=== PATIENT | female | born 1985 | race Caucasian/White ===

== ENCOUNTER → 2021-03-21 | Outpatient (CLI) | payer OTHER ==
[~2021-03-21] MED LIST: ACET-789 PO; ASPI-586 PO; BCP'S; CETI10TA49 PO; FLUC100T PO; HYDR-707 PO; IBUP-1773 PO; LORA-877 PO; NORG1TAB16 PO; NSTR15C TP; NYST15CR TP; PARO20TA5 PO; PNV PO
--- NOTE | 2021-03-21 16:55 | Diagnostic Imaging Report ---
PROCEDURE: Pelvic complete, transabdominal and transvaginal sonogram. Limited pelvic doppler. TECHNIQUE: Multiple real-time grayscale images were obtained of the pelvis in various projections transabdominally and transvaginally. Limited pelvic duplex images were obtained. HISTORY: Abnormal uterine bleeding. COMPARISON: None available. FINDINGS: Uterus: The uterus is anteverted and measures 7.6 x 4.5 x 5.0 cm. The myometrium is homogeneous without fibroids. Endometrium: The endometrium is normal in thickness and measures 0.4 cm. There is no fluid within the endometrial cavity. Adnexa: Both ovaries have a normal physiologic appearance. The right ovary measures 3.1 x 1.4 x 2.3 cm and the left ovary measures 3.2 x 1.2 x 2.2 cm. Duplex images reveal normal vascular flow to both ovaries. Other: There is no free fluid within the pelvis. IMPRESSION: 1. Unremarkable pelvic ultrasound. Dictated by: Dictated on workstation # [id number]
== END ==
LOC: RAD 15:15
PROVIDERS: ATTEND Obstetrics & Gynecology
DX: N93.9 Abnormal uterine and vaginal bleeding, unspecified (principal)
CPT/HCPCS: 76830; 76856

== ENCOUNTER 2021-03-26 11:05 | Outpatient (CLI) | payer OTHER ==
[~2021-03-26] VITALS: Ht 160 cm; Wt 72.7 kg
[~2021-03-26 11:05] MED LIST changes: -CETI10TA49 PO; -NORG1TAB16 PO; -PARO20TA5 PO
[2021-03-26] MEDS ORDERED: NORG1TAB16 PO (11:52)
[2021-03-26] MEDS ORDERED: PARO20TA5 PO (11:52)
[2021-03-26] MEDS ORDERED: CETI10TA49 PO (11:52)
[2021-03-27] MEDS ORDERED: ONDN4T PO (10:27)
[2021-03-27] MEDS ORDERED: ACET-2267 PO (10:27)
[2021-03-27] MEDS ORDERED: OXC5T PO (10:27)
[2021-03-27] MEDS ORDERED: IBUP-1773 PO (10:27)
== END 2021-03-26 12:12 | disposition home or self-care (01) ==
LOC: PREOP 11:05
PROVIDERS: ATTEND Obstetrics & Gynecology
DX: Z01.818 Encounter for other preprocedural examination (principal)

== ENCOUNTER 2021-03-27 08:22 | Day surgery (SDC) | payer OTHER ==
[2021-03-27] VITALS (10 sets, daily range): BP systolic 95–131; BP diastolic 62–100
[~2021-03-27] VITALS: Ht 160 cm; Wt 72.7 kg
[~2021-03-27 08:22] MED LIST changes: +CETI10TA49 PO; +NORG1TAB16 PO; +PARO20TA5 PO
[2021-03-27] MEDS ORDERED: ceFAZolin 2 GM IV Premixed 50 ML IV ONE (08:30)
[2021-03-27] MEDS ORDERED: metroNIDAZOLE 500MG/100ML IVPB 100 ML IV ONE (08:30)
[2021-03-27] MEDS ORDERED: ONDANSETRON 4 MG/2 ML (SDV) Z0FRAN ONE (09:15)
[2021-03-27] MEDS ORDERED: LIDOCAINE PF 2% 5 ML (XYLOCAINE) VIAL ONE (09:15)
[2021-03-27] MEDS ORDERED: proPOfol 200 MG/20 ML (DIPRIVAN) VIAL IV ONE (09:15)
[2021-03-27] MEDS ORDERED: LACTATED RINGERS 1,000 ML IV PRN (09:15)
[2021-03-27] MEDS ORDERED: MIDAZOLAM 2 MG/2 ML (VERSED) VIAL ONE (09:15)
[2021-03-27] MEDS ORDERED: fentaNYL INJ 100 MCG/2 ML AMP ONE (09:15)
--- NOTE | 2021-03-27 09:39 | Progress Note-Pre Operative ---
Pre-Operative Progress Note H&P Reviewed The H&P was reviewed, patient examined and no changes noted. Date Seen by Provider: Mar 27, 2021 Time Seen by Provider: 09:40 Date H&P Reviewed: Mar 27, 2021 Time H&P Reviewed: 09:30 Pre-Operative Diagnosis: abnormal uterine bleeding, menometrorrhagia CESARIO SPEAR DO Mar 27, 2021 09:39
--- NOTE | 2021-03-27 10:24 | Operative Report ---
Operative Report Date of Procedure/Surgery Mar 27, 2021 Surgeon (s) CESARIO SPEAR DO [employer] Guides (s): NA Post-Operative Diagnosis same Procedure Performed Chela endometrial ablation curettage Description of Procedure Anesthesia Type: General Estimated blood loss (mL): minimal Specimen(s) collected/removed endometrial curettings Description of the Procedure with informed consent the patient was taken to the operating room where general anesthesia was found the be adequate. She was then prepped and draped in the usual sterile fashion in the dorsolithotomy position. The bladder was then drained of clear, yellow urine. A speculum was placed in the vagina and the cervix was grasped with a tenaculum. The uterus was then sounded to 6.5 cm. I dilated the cervix and then a gentle curette was done. I then proceeded to do the Chela ablation under standard procedures. The ablation was done for 120 seconds and once this was completed, the device was removed. The tenaculum was removed from the cervix. There was an area of possible endometriosis so this area was cauterized and the tenaculum sites were cauterized. The patient was now awakened and taken to recovery in a stable condition. Findings of the Procedure small spots on the cervix that were bluish owen, possibly endometriosis small amount of endometrial curettings Allergies and Home Medications Allergies Coded Allergies: Sulfa (Sulfonamide Antibiotics) (Unverified Allergy, Unknown, 11/22/10) Home Medications Acetaminophen 500 Mg Tablet, 1,000 MG PO Q8H Prescribed by: CESARIO SPEAR on 03/27/21 1027 Cetirizine HCl 10 Mg Tablet, 10 MG PO DAILY, (Reported) Ibuprofen 600 Mg Tablet, 600 MG PO Q6H Prescribed by: CESARIO SPEAR on 03/27/21 1027 Ondansetron HCl 4 Mg Tab, 4 MG PO Q6H Prescribed by: CESARIO SPEAR on 03/27/21 1027 Oxycodone Hcl 5 Mg Tab, 5 MG PO Q4H Prescribed by: CESARIO SPEAR on 03/27/21 1027 Paroxetine HCl 20 Mg Tablet, 20 MG PO DAILY, (Reported) Patient Home Medication List Home Medication List Reviewed: Yes CESARIO SPEAR DO Mar 27, 2021 10:24
[2021-03-27] MEDS ORDERED: SEVOFLURANE (ULTANE) 15 ML INHAL SOLN ONE (10:25)
[2021-03-27] MEDS ORDERED: KETOROLAC 30 MG/ML VIAL ONE (10:25)
[2021-03-27] MEDS ORDERED: ONDN4T PO (10:27)
[2021-03-27] MEDS ORDERED: IBUP-1773 PO (10:27)
[2021-03-27] MEDS ORDERED: OXC5T PO (10:27)
[2021-03-27] MEDS ORDERED: ACET-2267 PO (10:27)
--- NOTE | 2021-03-27 10:30 | Discharge Inst-Women's Service ---
Discharge Inst-Women's Serv Depart Medication/Instructions New, Converted or Re-Newed RX: Transmitted to Pharmacy Instructions expect some light bleeding/spotting for up to two weeks also increase in discharge in 10-14 days Final Diagnosis abnormal uterine bleeding menometrorrhagia Problems Reviewed?: Yes Consults/Follow Up Additional Follow Up: Yes (2-4 weeks ) Activity Activity: Activity as Tolerated Driving Instructions: No Driving for 24 Hours NO SMOKING: NO SMOKING Nothing Inside Vagina: No Douching, No [place], No Tampons Diet Discharge Diet: No Restrictions Symptoms to Report to : Swelling Increased, Bleeding Excessive, Pain Increased, Fever Over 101 Degrees F, Vaginal Bleeding Increase, Cramps in Feet or Legs, Vaginal Discharge Foul For Any Problems or Questions: Contact Your Physician CESARIO SPEAR DO Mar 27, 2021 10:30
--- NOTE | 2021-03-27 10:39 | Anesthesia-General Post-Op ---
General Patient Condition Mental Status/LOC: Same as Preop Cardiovascular: Satisfactory Nausea/Vomiting: Absent Respiratory: Satisfactory Pain: Controlled Complications: Absent Post Op Complications Complications None Follow Up Care/Instructions Patient Instructions None needed. Anesthesia/Patient Condition Patient Condition Patient is doing well, no complaints, stable vital signs, no apparent adverse anesthesia problems. No complications reported per nursing. ISABEL UP CRNA Mar 27, 2021 10:39
[2021-03-27] MEDS ORDERED: morphine INJ 10 MG/ML 1ML (SYR OR VIAL) IVP ONE (10:45)
[2021-03-27] MEDS ORDERED: ONDANSETRON 4 MG/2 ML (SDV) Z0FRAN IVP PRN (10:45)
[2021-03-27] MEDS ORDERED: fentaNYL INJ 100 MCG/2 ML AMP IVP ONE (10:45)
[2021-03-27] MEDS ORDERED: ACETAMINOPHEN 500 MG TAB (TYLENOL) PO PRN (11:45)
[2021-03-27] MEDS ORDERED: ACETAMINOPHEN 500 MG TAB (TYLENOL) ONE (11:47)
== END 2021-03-27 12:29 | disposition home or self-care (01) ==
LOC: SDC 08:22
PROVIDERS: ATTEND Obstetrics & Gynecology
DX: N85.8 Other specified noninflammatory disorders of uterus (principal); N93.8 Other specified abnormal uterine and vaginal bleeding; Z79.899 Other long term (current) drug therapy; Z79.1 Long term (current) use of non-steroidal anti-inflammatories (NSAID); Z79.891 Long term (current) use of opiate analgesic
CPT/HCPCS: 84703; 87081; 88305

== ENCOUNTER 2023-06-29 17:32 | Emergency (ER) | payer OTHER ==
[~2023-06-29] VITALS: Ht 160 cm; Wt 83.0 kg
[~2023-06-29 17:32] MED LIST changes: +ACET-2267 PO; -NSTR15C TP; -NYST15CR TP; +NYST15CR35 TP; +NYST15CR36 TP; +ONDN4T PO; +OXC5T PO
--- NOTE | 2023-06-29 18:07 | ED Lower Extremity ---
General Chief Complaint: Lower Extremity Stated Complaint: RIGHT ANKLE INJ Nursing Triage Note: PT ARRIVED BY [facility] WITH CC OF LEFT ANKLE INJURY AFTER SHE FELL OFF A 3 STEP LADDER AT 1630. PT RECIEVED 100MCG OF FENTANYL IM FROM EMS UPON ARRIVAL. Source: patient Exam Limitations: no limitations History of Present Illness Date Seen by Provider: Jun 29, 2023 Time Seen by Provider: 17:43 Initial Comments 37-year-old female presents to the ER via EMS after she fell off of a ladder. She thinks she was approximately 3 or 4 steps up. She presents with left ankle pain and swelling as well as left foot pain. Allergies and Home Medications Allergies Coded Allergies: Sulfa (Sulfonamide Antibiotics) (Unverified Allergy, Unknown, 11/22/10) Patient Home Medication List Home Medication List Reviewed: Yes Acetaminophen (Tylenol Extra Strength) 500 Mg Tablet, 1,000 MG PO Q8H Prescribed by: CESARIO SPEAR on 03/27/21 1027 Cetirizine HCl (Zyrtec) 10 Mg Tablet, 10 MG PO DAILY, (Reported) Entered as Reported by: DEMOND GOODMAN on 03/26/21 1152 Hydrocodone/Acetaminophen (Hydrocodone-Acetamin 5-325 mg) 5 Mg-325 Mg Tablet, 1 TAB PO Q4H PRN for PAIN-MODERATE (5-7) Prescribed by: Neisha Newton on 06/29/23 1908 Ibuprofen (Ibuprofen) 600 Mg Tablet, 600 MG PO Q6H Prescribed by: CESARIO SPEAR on 03/27/21 1027 Ondansetron HCl (Zofran) 4 Mg Tab, 4 MG PO Q6H Prescribed by: CESARIO SPEAR on 03/27/21 1027 Oxycodone Hcl (Oxyir Tablet) 5 Mg Tab, 5 MG PO Q4H Prescribed by: CESARIO SPEAR on 03/27/21 1027 Paroxetine HCl (Paroxetine HCl) 20 Mg Tablet, 20 MG PO DAILY, (Reported) Entered as Reported by: DEMOND GOODMAN on 03/26/21 1152 Review of Systems Constitutional: see HPI Past Knkwdfh-Vvtqzl-Qlqqtf Hx Patient Social History Use of E-Cig and/or Vaping dev: Yes E-Cig or Vaping type used: Marijuana Substance use?: Yes Substance type: Marijuana Alcohol Use?: Yes Alcohol Frequency: Several times a month Immunizations Up To Date Tetanus Booster (TDap): More than 5yrs First/Initial COVID19 Vaccinat: YES Second COVID19 Vaccination Kevin: YES Third COVID19 Vaccination Date: YES Seasonal Allergies Seasonal Allergies: Yes Past Medical History Surgery/Hospitalization HX: TONSILECTOMY, UTERINE ABLASION Surgeries: Yes (Scuddy Teeth) Tonsillectomy Respiratory: No Cardiac: No Neurological: No Reproductive Disorders: No Female Reproductive Disorders: Denies Sexually Transmitted Disease: No HIV/AIDS: No Genitourinary: No Gastrointestinal: No Musculoskeletal: No Endocrine: No HEENT: No Loss of Vision: Denies Hearing Impairment: Denies Cancer: No Psychosocial: No Integumentary: No Blood Disorders: No Adverse Reaction/Blood Tranf: No Family Medical History Cardiovascular disease Grandparents (Maternal Grandmother-Stints Paternal Grandfather- of heart attack) Cataracts Grandparents (Maternal Grandfather) Diabetes mellitus Grandparents (Paternal Grandfather) Fibrocystic disease of breast Grandparents (Paternal Grandmother) Glaucoma Grandparents (Maternal Grandfather) Headache disorder Grandparents (Maternal Grandfather-Cluster Headaches) Hypercholesterolemia 19 MOTHER Grandparents (Maternal Grandmother) Myocardial infarction Grandparents (Paternal Grandfather x2) Psychosocial problem 19 MOTHER (Anxiety) Grandparents (Maternal Grandmother-Anxiety) Severe allergy Grandparents (Maternal Grandmother- Anaphylaxis to Sulfa drugs) No Pertinent Family Hx Physical Exam Vital Signs Vital Signs - First Documented 06/29/23 17:36 Pulse 107 B/P (MAP) 138/87 (104) Pulse Ox 99 O2 Delivery Room Air Capillary Refill : Height, Weight, BMI Height: 5'3" Weight: 145lbs. 8.0oz. 65.756250ju; 32.00 BMI Method:Stated General Appearance: WD/WN, no apparent distress Neck: supple, normal inspection Cardiovascular: regular rate, rhythm Respiratory: lungs clear, normal breath sounds, no respiratory distress, no accessory muscle use Ankles: left ankle limited range of motion, left ankle pain, left ankle soft tissue tenderness, left ankle swelling Feet: left foot pain, left foot other (Pulses intact, sensation intact distally, cap refill less than 2 seconds) Neurologic/Psychiatric: alert, normal mood/affect Skin: normal color, warm/dry Progress/Results/Core Measures Results/Orders Lab Results Laboratory Tests Test 06/29/23 17:42 Range/Units Glucometer 80 70-110 MG/DL My Orders Orders - NEISHA CHAMORRO APRN Foot, Left, 3 Views (06/29/23 17:48) Ankle, Left, 3 Views (06/29/23 17:48) Fentanyl Injection (Fentanyl Injection (06/29/23 18:30) Ankle, Left, 3 Views (06/29/23 18:39) Hydrocodone/Apap 10/325 Tablet (Hydrocod (06/29/23 19:00) Fentanyl Injection (Fentanyl Injection (06/29/23 19:00) Ketorolac Injection (Ketorolac Injection (06/29/23 19:00) Rx-Hydrocodone/Apap 5-325 Mg (Rx-Vicodin (06/29/23 19:15) Medications Given in ED Current Medications Medications Dose Ordered Sig/Pillo Route Start Time Stop Time Status Last Admin Dose Admin Acetaminophen/ Hydrocodone Bitart 1 ea ONCE ONCE PO 06/29/23 19:00 06/29/23 19:01 DC 06/29/23 19:01 1 EA Acetaminophen/ Hydrocodone Bitart 1 ea Q4H PRN PO 06/29/23 19:15 06/29/23 19:28 DC 06/29/23 19:15 1 EA Fentanyl Citrate 50 mcg ONCE ONCE IVP 06/29/23 19:00 06/29/23 19:01 DC 06/29/23 19:02 50 MCG Fentanyl Citrate 100 mcg ONCE ONCE IVP 06/29/23 18:30 06/29/23 18:31 DC 06/29/23 18:26 100 MCG Ketorolac Tromethamine 15 mg ONCE ONCE IVP 06/29/23 19:00 06/29/23 19:01 DC 06/29/23 19:02 15 MG Vital Signs/I&O 06/29/23 06/29/23 17:36 19:25 Pulse 107 99 B/P (MAP) 138/87 (104) 123/91 Pulse Ox 99 95 O2 Delivery Room Air Room Air Blood Pressure Mean: 104 Progress Progress Note : Progress Note Patient seen and evaluated, resting comfortably in bed, no acute distress. Based on exam and symptoms, x-ray of left ankle and left foot ordered. Patient was given 100 mcg of fentanyl by EMS. 1838 x-rays reviewed by me. It shows a slightly displaced left distal fibula fracture. Also shows a comminuted and displaced medial malleolus fracture of the left ankle. There is a possible posterior malleolar fracture as well. No acute fracture noted to foot x-ray on my review. Second dose of 100 mcg of fentanyl given prior to splint placement. Posterior leg splint with stirrup splint placed. Patient tolerated procedure well. Sensation intact in toes, cap refill less than 2 seconds. Postreduction film ordered. 1901 postreduction film reviewed by me. Improvement noted after splint placement. More pain medication given. Will discharge with prescription for [place] and take-home pack for tonight. Patient is stable for discharge. Instructed to follow-up with orthopedics. Will give prescription for crutches. Discharge instructions and return precautions provided. Diagnostic Imaging Diagonstic Imaging: Xray Plain Films/CT/US/NM/MRI: ankle Comments [facility], [place] NAME: RADHABROOK Carlos [facility] REC#: [id number] PT STATUS: DEP ER : 1985 PHYSICIAN: NEISHA CHAMORRO APRN ADMIT DATE: 06/29/23/ER Signed Date of Exam:06/29/23 ANKLE, LEFT, 3 VIEWS INDICATION: 37-year-old female injured in fall presents with left ankle pain. COMPARISON: None. FINDINGS: Three views of the left ankle show a slightly displaced left distal fibular fracture. There is a comminuted medial malleolar fracture as well as suspected posterior malleolar fracture. The ankle mortise is slightly disrupted. Overlying soft tissue swelling is seen. IMPRESSION: 1. Slightly displaced left distal fibular fracture. 2. Comminuted and displaced medial malleolar fracture of the left ankle. A posterior malleolar fracture may also be present. The ankle mortise appears slightly disrupted. There is overlying soft tissue swelling. Dictated by: Dictated on workstation # [id number] Dict: 06/29/231837 Trans: 06/29/231928 [facility] [id number] Interpreted by: KIANA ELLIS MD Electronically signed by: KIANA ELLIS MD 06/29/231928 Diagonstic Imaging: Xray Plain Films/CT/US/NM/MRI: other (foot) Comments [facility] [place] NAME: BROOK GARCIA [facility] REC#: [id number] PT STATUS: [facility] ER : 1985 PHYSICIAN: NEISHA CHAMORRO APRN ADMIT DATE: 06/29/23/ER Signed Date of Exam:06/29/23 FOOT, LEFT, 3 VIEWS INDICATION: 37-year-old female injured in fall from a ladder presents with left ankle and left foot pain. COMPARISON: Left ankle 06/29/2023. FINDINGS: Three views of the left foot show no evidence of new or healing fracture, bony destruction or remodeling. As noted on the ankle films, there is a complex left ankle fracture including the distal fibular fracture as well as a displaced and comminuted medial malleolar fracture and a possible posterior malleolar fracture with disruption of the ankle mortise. IMPRESSION: 1. No fracture or subluxation seen in the left foot. 2. Complex left ankle fracture with disruption of the ankle mortise. Dictated by: Dictated on workstation # [id number] Dict: 06/29/231840 Trans: 06/29/231928 [facility] [id number] Interpreted by: KIANA ELLIS MD Electronically signed by: KIANA ELLIS MD 06/29/231928 Diagonstic Imaging: Xray Plain Films/CT/US/NM/MRI: ankle Comments [facility] [place] NAME: BROOK GARCIA Carlos [facility] REC#: [id number] PT STATUS: [facility] ER : 1985 PHYSICIAN: NEISHA CHAMORRO APRN ADMIT DATE: 06/29/23/ER Signed Date of Exam:06/29/23 ANKLE, LEFT, 3 VIEWS INDICATION: 37-year-old female with left ankle fracture post casting. COMPARISON: 06/29/2022. FINDINGS: Since the prior exam, there has been interval placement of a cast over the left distal leg and foot. This stabilizes the previously demonstrated nondisplaced left distal fibular fracture as well as comminuted medial malleolar fracture. Ankle mortise is slightly improved. IMPRESSION: There is now casting overlying the fractures involving the medial malleolus and distal fibula of the left ankle. The ankle mortise has improved. Dictated by: Dictated on workstation # [id number] Dict: 06/29/231899 Trans: 06/29/231928 E [id number] Interpreted by: KIANA ELLIS MD Electronically signed by: KIANA ELLIS MD 06/29/231928 Departure Impression Primary Impression: Fibula fracture Additional Impression: Medial malleolar fracture Disposition: HOME, SELF-CARE Condition: Stable Departure-Patient Inst. Decision time for Depature: 19:02 Referrals: SAIMA MOONEY MD (PCP/Family) Primary Care Physician JAYJAY ANGEL MD, MICHAEL P MD Patient Instructions: Ankle Fracture (DC) Add. Discharge Instructions: Keep the splint in place at all times. Do not get it wet. Cover it with plastic like plastic wrap or a trash bag when showering to prevent it from getting wet. Do not put any weight on your foot. Use the crutches to keep weight off your foot. You will need to take the paper prescription to the [facility] to sisal picker the crutches. Below is the address and phone number. Follow-up with orthopedics. I have provided Dr. Angel's and Dr. Ayala's phone number. Take [place] as needed for pain. It may make you sleepy. You may also take 800 mg of ibuprofen every 8 hours with food as needed for pain. Return for severe pain, numbness or tingling in your foot, or any other new, concerning, or worsening symptoms. [facility] in [address], [place], [place] [id number] All discharge instructions reviewed with patient and/or family. Voiced understanding. Scripts Hydrocodone/Acetaminophen (Hydrocodone-Acetamin 5-325 mg) 5 Mg-325 Mg Tablet 1 TAB PO Q4H PRN for PAIN-MODERATE (5-7), #15 TAB 0 Refills Prov: NEISHA CHAMORRO SENIOR APPLICATIONS ENGINEER 06/29/23 NEISHA CHAMORRO APRN Jun 29, 2023 18:07
[2023-06-29] MEDS ORDERED: fentaNYL INJECTION 100 MCG/2 ML VIAL IVP ONE ×2 (18:30→19:00)
--- NOTE | 2023-06-29 18:44 | Diagnostic Imaging Report ---
INDICATION: 37-year-old female injured in fall presents with left ankle pain. COMPARISON: None. FINDINGS: Three views of the left ankle show a slightly displaced left distal fibular fracture. There is a comminuted medial malleolar fracture as well as suspected posterior malleolar fracture. The ankle mortise is slightly disrupted. Overlying soft tissue swelling is seen. IMPRESSION: 1. Slightly displaced left distal fibular fracture. 2. Comminuted and displaced medial malleolar fracture of the left ankle. A posterior malleolar fracture may also be present. The ankle mortise appears slightly disrupted. There is overlying soft tissue swelling. Dictated by: Dictated on workstation # [id number]
--- NOTE | 2023-06-29 18:48 | Diagnostic Imaging Report ---
INDICATION: 37-year-old female injured in fall from a ladder presents with left ankle and left foot pain. COMPARISON: Left ankle 06/29/2023. FINDINGS: Three views of the left foot show no evidence of new or healing fracture, bony destruction or remodeling. As noted on the ankle films, there is a complex left ankle fracture including the distal fibular fracture as well as a displaced and comminuted medial malleolar fracture and a possible posterior malleolar fracture with disruption of the ankle mortise. IMPRESSION: 1. No fracture or subluxation seen in the left foot. 2. Complex left ankle fracture with disruption of the ankle mortise. Dictated by: Dictated on workstation # [id number]
[2023-06-29] MEDS ORDERED: HYDROcodone/ACETAMINOPHEN 10/325 TABLET PO ONE (19:00)
[2023-06-29] MEDS ORDERED: KETOROLAC INJ 15 MG/ML VIAL IVP ONE (19:00)
[2023-06-29] MEDS ORDERED: ACHD5005 PO (19:07)
--- NOTE | 2023-06-29 19:13 | Diagnostic Imaging Report ---
INDICATION: 37-year-old female with left ankle fracture post casting. COMPARISON: 06/29/2022. FINDINGS: Since the prior exam, there has been interval placement of a cast over the left distal leg and foot. This stabilizes the previously demonstrated nondisplaced left distal fibular fracture as well as comminuted medial malleolar fracture. Ankle mortise is slightly improved. IMPRESSION: There is now casting overlying the fractures involving the medial malleolus and distal fibula of the left ankle. The ankle mortise has improved. Dictated by: Dictated on workstation # [id number]
[2023-06-29 19:25] VITALS: BP 123/91
[2023-07-01] MEDS ORDERED: NORG1TAB79 PO (12:51)
== END 2023-06-29 19:25 | disposition home or self-care (01) ==
LOC: EDUNIT# 17:32 → ER 17:33
DX: S82.52XA Displaced fracture of medial malleolus of left tibia, initial encounter for closed fracture (principal); W11.XXXA Fall on and from ladder, initial encounter
CPT/HCPCS: 73610; 73630; 82947; 96374; 96375; 96376

== ENCOUNTER → 2023-07-01 | Outpatient (CLI) | payer OTHER ==
[~2023-07-01] MED LIST changes: +ACHD5005 PO; +ASPI-1238 PO; +HYDR-3817 PO; +NORG1TAB79 PO
== END ==
LOC: ORTHO 08:35
PROVIDERS: ATTEND Orthopaedic Surgery
DX: S82.842D Displaced bimalleolar fracture of left lower leg, subsequent encounter for closed fracture with routine healing (principal); S93.439D Sprain of tibiofibular ligament of unspecified ankle, subsequent encounter; X58.XXXD Exposure to other specified factors, subsequent encounter

== ENCOUNTER → 2023-07-01 | Outpatient (CLI) | payer OTHER ==
[~2023-07-01] VITALS: Ht 160 cm; Wt 84.6 kg
== END | disposition home or self-care (01) ==
LOC: PREOP 11:08
PROVIDERS: ATTEND Orthopaedic Surgery
DX: Z01.818 Encounter for other preprocedural examination (principal)

== ENCOUNTER 2023-07-02 09:43 | Day surgery (SDC) | payer OTHER ==
[~2023-07-02] VITALS: Ht 160 cm; Wt 84.6 kg
[2023-07-02] VITALS (11 sets, daily range): BP systolic 107–141; BP diastolic 64–108
[~2023-07-02 09:43] MED LIST changes: -ASPI-1238 PO; -HYDR-3817 PO
[2023-07-02] MEDS ORDERED: MIDAZOLAM INJ 2 MG/2 ML VIAL ONE (10:15)
[2023-07-02] MEDS ORDERED: fentaNYL INJECTION 100 MCG/2 ML VIAL ONE (10:15)
[2023-07-02] MEDS ORDERED: ONDANSETRON INJECTION 4 MG/2 ML (SDV) ONE (10:16)
[2023-07-02] MEDS ORDERED: LIDOCAINE PF 2% 5 ML VIAL ONE (10:16)
[2023-07-02] MEDS ORDERED: dexAMETHasone INJ 10 MG/ML 1 ML VIAL ONE (10:16)
[2023-07-02] MEDS ORDERED: proPOfol INJECTION 200 MG/20 ML VIAL IV ONE (10:16)
[2023-07-02] MEDS ORDERED: BUPIVACAINE 0.25% 30 ML VIAL ONE (10:20)
[2023-07-02] MEDS ORDERED: LACTATED RINGERS 1,000 ML 1,000 ML IV PRN (10:45)
[2023-07-02] MEDS ORDERED: ceFAZolin INJECTION 2,000 MG ONE (10:49)
[2023-07-02] MEDS ORDERED: NS (IVPB) 50 ML 50 ML ONE (10:49)
--- NOTE | 2023-07-02 10:52 | Progress Note-Pre Operative ---
Pre-Operative Progress Note Date of Available H&P: Jul 01, 2023 Date H&P Reviewed: Jul 02, 2023 Time H&P Reviewed: 10:45 History & Physical: H&P Reviewed, Patient Examed, No changes noted Pre-Operative Diagnosis: L Bimalleolar Ankle Fracture/Syndesmotic Injury JAYJAY BULLARD MD Jul 02, 2023 10:52
[2023-07-02] MEDS ORDERED: ceFAZolin INJECTION 2,000 MG in NS (IVPB) 50 ML 50 ML IV ONE (12:00)
[2023-07-02] MEDS ORDERED: PROMETHAZINE INJ 25 MG/ML VIAL IVP ONE (12:45)
[2023-07-02] MEDS ORDERED: MEPERIDINE INJ 50 MG/ML VIAL IVP ONE (12:45)
[2023-07-02] MEDS ORDERED: HYDROmorphone INJECTION 2 MG/ML VIAL IV ONE (12:45)
[2023-07-02] MEDS ORDERED: ONDANSETRON INJECTION 4 MG/2 ML (SDV) IVP PRN (12:45)
[2023-07-02] MEDS ORDERED: morphine INJ 10 MG/ML 1ML (SYR OR VIAL) IVP ONE (12:45)
--- NOTE | 2023-07-02 12:45 | Anesthesia-General Post-Op ---
General Patient Condition Mental Status/LOC: Same as Preop Cardiovascular: Satisfactory Nausea/Vomiting: Absent Respiratory: Satisfactory Pain: Controlled Complications: Absent Post Op Complications Complications None Follow Up Care/Instructions Patient Instructions None needed. Anesthesia/Patient Condition Patient Condition Patient is doing well, no complaints, stable vital signs, no apparent adverse anesthesia problems. No complications reported per nursing. GINETTE BAHENA CRNA Jul 02, 2023 12:45
--- NOTE | 2023-07-02 12:51 | Operative Report - Ortho ---
Operative Report Surgeon (s)/Furnace Liner (s) Surgeon JAYJAY BULLARD MD Furnace Liner n/a Pre-Operative Diagnosis Left Bimalleolar Ankle Fracture/Left Syndesmotic Injury Post-Operative Diagnosis same Operative Report Date of Procedure: Jul 02, 2023 Name of Procedure Performed: Open Reduction and Internal Fixation of Left Bimalleolar Ankle Fracture Open Reduction and Internal Fixation of Left Ankle Syndesmosis Description & Findings After obtaining informed consent and marking the patient, patient did receive intravenous antibiotics. Taken to the operating room and general anesthesia was induced. Surgical timeout was taken. The left lower extremity was prepped and draped in the usual sterile fashion. Attention was initially turned to the fibula fracture, incision was made centered over the fracture. Dissection was carried down to the fracture and a periosteal elevator was used to expose the fibula proximally and distally. The fracture was provisionally reduced using clamps. A fibular plate was selected and placed. A nonlocking screw was placed in the diaphysis of the fibula proximally and then a nonlocking screw was then placed distally. C-arm demonstrated good position of the plate with near an atomic reduction of the fracture. Locking screws were used to fill the proximal holes of the plate. One additional locking screw was placed in the distal portion of the plate. Most distal hole was left open for syndesmotic fixation. C-arm demonstrated appropriate position of the plate and screws and maintained reduction of the fracture. Attention was turned to the medial side. Fracture had near anatomic reduction. 2 K-wires for 4.0 cannulated screws were placed percutaneously through the medial malleolar fragment and across the fracture site. The first wire was anterior and the second wire was posterior. C-arm was used to confirm position of the wires. After drilling the distal cortex, 2 4.0 mm cannulated screws were then placed over the wires; both measured 42 mm. Wires were removed. Attention was turned to the syndesmosis, reduction was performed and a large periarticular clamp was used to hold the reduction. Reduction was verified on the C-arm. Three cortices were drilled through the distal hole of the plate and a 36 mm 3.5 screw was placed. A second syndesmotic screw was placed distal to the plate measuring 42 mm. Final C-arm images were obtained in the AP, mortise, and lateral views and demonstrated appropriate reduction of the fractures and hardware in good position. Images were transferred to PACS. Wounds were irrigated with normal saline. Closed with 0 vicryl, 2-0 vicryl, and a combination of 3-0 and 4-0 nylon. Wounds were injected with local anesthetic. Dressed with xeroform, 4x4s, ABD, cast padding, soft roll, posterior splint, and JOHNNY wrap. Patient tolerated the procedure well and was stable to the recovery room. Anesthesia Type General Estimated Blood Loss minimal Specimen(s) collected/removed None JAYJAY BULLARD MD Jul 02, 2023 12:51
[2023-07-02] MEDS ORDERED: HYDR-3817 PO (12:52)
[2023-07-02] MEDS ORDERED: ASPI-1238 PO (12:52)
[2023-07-02] MEDS ORDERED: morphine INJ 10 MG/ML 1ML (SYR OR VIAL) ONE (13:00)
[2023-07-02] MEDS ORDERED: HYDROcodone/ACETAMINOPHEN 7.5 MG/325 MG TABLET PO ONE ×2 (14:06→14:15)
--- NOTE | 2023-07-02 15:20 | Diagnostic Imaging Report ---
INDICATION: Ankle fracture. COMPARISON: 06/29/2023. TOTAL NUMBER OF FLUOROSCOPIC IMAGES SAVED: 3. FINDINGS: Fluoroscopic guidance was provided intraoperatively during ORIF of the left ankle. Images provided show orthopedic side plate and screws along the lateral margins of the distal fibula. Syndesmotic screws are also noted. Two partially threaded screws are also seen traversing the medial malleolus. There is appropriate alignment of the major fracture fragments, although evaluation is degraded by fluoroscopic modality. Please note, interpreting radiologist was not present during the procedure. IMPRESSION: 1. Fluoroscopic guidance provided intraoperatively as above. Dictated by: Dictated on workstation # [id number]
== END 2023-07-02 14:45 | disposition home or self-care (01) ==
LOC: SDC 09:43
PROVIDERS: ATTEND Orthopaedic Surgery
DX: S82.842A Displaced bimalleolar fracture of left lower leg, initial encounter for closed fracture (principal); S93.432A Sprain of tibiofibular ligament of left ankle, initial encounter; W11.XXXA Fall on and from ladder, initial encounter; E66.9 Obesity, unspecified; Z68.33 Body mass index [BMI] 33.0-33.9, adult
CPT/HCPCS: 27814; 27829; 76000; 84703; 87081; C1713 ×6; C1769

== ENCOUNTER → 2023-07-08 | Outpatient (CLI) | payer OTHER ==
[~2023-07-08] MED LIST changes: +ASPI-1238 PO; +HYDR-3817 PO
--- NOTE | 2023-07-08 13:16 | Diagnostic Imaging Report ---
INDICATION: Left ankle pain. FINDINGS: AP, oblique, and lateral views of left ankle are obtained. Fine bony detail is limited due to overlying splint. Since the study of 06/29/2023, there has been placement of lateral fibular fixation plate and medial malleolar screws as well as syndesmotic screws. There is now near-anatomic alignment of the medial malleolar and fibular shaft fracture fragments. No new fracture or complication is seen. IMPRESSION: No evidence of complication or other acute abnormality post internal fixation of ankle fractures. Dictated by: Dictated on workstation # [id number]
== END ==
LOC: ORTHO 12:49
PROVIDERS: ATTEND Orthopaedic Surgery
DX: M25.572 Pain in left ankle and joints of left foot (principal)
CPT/HCPCS: 73610